=== PATIENT | male | born 1980 | race Caucasian/White ===

== ENCOUNTER 2020-03-27 19:42 | Emergency (ER) | payer MEDICARE ==
[~2020-03-27] VITALS: Ht 172.7 cm; Wt 101.4 kg
[2020-03-27 20:00] VITALS: TEMP 98.3
[2020-03-27 20:37] LABS: ALANINE AMINOTRANSFERASE 24 U/L (4-49); ALBUMIN 4.9 gm/dL (3.5-5.0); ALKALINE PHOSPHATASE 126 U/L (50-136); ANION GAP 10 mmol/L (7-16); AST,SGOT 22 U/L (15-37); BILIRUBIN,TOTAL 0.4 mg/dL (0.0-1.0); BLOOD UREA NITROGEN 13 mg/dL (9-20); CALCIUM 9.3 mg/dL (8.4-10.2); CARBON DIOXIDE 26 mmol/L (22-30); CHLORIDE 103 mmol/L (98-107); CREATININE, serum 1.11 (0.66-1.25); GLUCOSE 96 mg/dL (74-106); POTASSIUM 4.2 mmol/L (3.4-5.0); SODIUM 139 mmol/L (137-145); TOTAL PROTEIN 7.9 gm/dL (6.4-8.2)
[2020-03-27 20:38] LABS: COLLECTION METHOD CLEAN CATCH
[2020-03-27 20:38] LABS: ACETAMINOPHEN < 10 ug/mL (10-30); ALCOHOL(ethanol),MEDICAL < 10 mg/dL; SALICYLATE < 1.0 mg/dL
[2020-03-27 20:51] LABS: MUCOUS Present /lpf; PH 6 (5-8); SQUAMOUS EPITHELIAL 0-2 /hpf; URINE APPEARANCE Clear; URINE BACTERIA None Seen /hpf; URINE BILIRUBIN Negative (NEGATIVE); URINE BLOOD Negative (NEGATIVE); URINE COLOR Yellow; URINE GLUCOSE Negative (NEGATIVE); URINE KETONE Negative (NEGATIVE); URINE LEUKOCYTE ESTERASE Negative (NEGATIVE); URINE NITRATE Negative (NEGATIVE); URINE PROTEIN(semi-quant) Negative (NEGATIVE); URINE RBC 0-2 /hpf; URINE UROBILINOGEN Negative (NEGATIVE)
[2020-03-27] MEDS ORDERED: SEROQUEL50 MG PO ×2 (20:54→20:55)
[2020-03-27] MEDS ORDERED: LAMICTAL200 MG PO (20:55)
[2020-03-27] MEDS ORDERED: DESYREL DIVIDO150 M1 PO (20:55)
[2020-03-27] MEDS ORDERED: ZOLOFT 100MG100 MG PO (20:55)
[2020-03-27] MEDS ORDERED: KLONOPIN2 MG PO (20:56)
[2020-03-27] MEDS ORDERED: TEGRETOL 1100 MG/TAB PO (20:56)
[2020-03-27] MEDS ORDERED: ADDERALL15 MG PO (20:56)
[2020-03-27 20:59] LABS: BASO % 0.2 % (0.0-2.0); EOS % 0.6 % (0-4.0); GRAN # 2.3 (1.4-6.5); HEMOGLOBIN 13.7 g/dl (13.5-18.0); LYMPH # 1.7 (1.2-3.4); LYMPH % 35.9 % (20.0-51.0); MEAN CELL VOLUME 91 fl (80.0-100.0); MEAN CORPUSCULAR HEMOGLOBIN 30 pg (27.0-31.0); MEAN CORPUSCULAR HGB CONC 33 g/dl (33.0-37.0); MEAN PLATELET VOLUME 9.8 fl (7.4-10.4); MONO # 0.7 (0.1-0.6); MONO % 13.9 % (1.7-9.3); PLATELET COUNT 238 K/mm3 (130-400); RED BLOOD COUNT 4.51 M/mm3 (4.20-5.60); REDCELL DISTRIBUTION WIDTH-CV 12.4 % (11.5-14.5)
[2020-03-27 21:06] LABS: TRICYCLIC ANTIDEPRESS URINE POSITIVE
[2020-03-27 23:02] VITALS: BP 122/86; PULSE 74
== END 2020-03-27 23:15 | disposition home or self-care (01) ==
LOC: COL.ER 19:42
PROVIDERS: Emergency Medicine
DX: T54.92XA Toxic effect of unspecified corrosive substance, intentional self-harm, initial encounter (principal)